=== PATIENT | male | born 1975 | race Caucasian/White ===

== ENCOUNTER 2019-12-11 14:07 | Emergency (ER) | payer BC, MEDICAID, SELFPAY ==
[2019-12-11 14:20] VITALS: BP 114/79; PULSE 116; RESP 20; TEMP 37.2; O2SAT 99
--- NOTE | 2019-12-11 14:44 | ED.GENADULT ---
HPI - General Adult General Chief complaint: Dental/Oral Stated complaint: tooth ache Source: patient Mode of arrival: ambulatory Limitations: no limitations History of Present Illness HPI narrative: 44-year-old male with type 2 diabetes complains of 3 days of pain in his left upper and lower molars associated with facial swelling. Pain is sharp rated 15/10. It was so severe yesterday he had several episodes of nausea and vomiting. None today. He denies fevers /chills. Related Data Allergies Allergy/AdvReac Type Severity Reaction Status Date / Time Penicillins Allergy Itching Verified 12/11/19 14:41 Review of Systems Constitutional: Constitutional: Reports no additional constitutional complaints ENT: Reports system reviewed and no additional complaints, except as documented Comments: Left ear pain today. [facility] Past Medical History Medical History (Updated 12/11/19 @ 14:53 by Lai Ortega MD) Diabetes mellitus type 2 in obese Social History Social History (Updated 12/11/19 @ 14:54 by Lai Ortega MD) Smoking status: Current every day smoker Exam Narrative: Exam Narrative: Vitals are stable pulse of 116 he appears to be in pain, holding the left side of his face. HENMT: Ears: TM's normal bilaterally ( left tympanic membrane is normal) and EAC's normal ( ) Other: fully opens his mouth. Several left mandibular molars are decayed down to the gums; adjacent teeth are tender when percussed. Several decayed molar some left maxillary painful when percussed. He is tender in the left axilla and left mandibular area with very minor swelling. There is no erythema or induration. No cervical lymphadenopathy. Course Vital Signs Vital signs: Vital Signs Temperature 37.2 C 12/11/19 14:20 Pulse Rate 116 H 12/11/19 14:20 Respiratory Rate 12/11/19 14:20 Blood Pressure 114/79 12/11/19 14:20 Pulse Oximetry 99 12/11/19 14:20 Temperature 37.2 C 12/11/19 14:20 Pulse Rate 116 H 12/11/19 14:20 Respiratory Rate 12/11/19 14:20 Blood Pressure 114/79 12/11/19 14:20 Pulse Oximetry 99 12/11/19 14:20 Medical Decision Making MDM Narrative Medical decision making narrative: Diabetic with extensive tooth decay and signs and symptoms consistent with dental abscess Vital Signs Vital Signs: Vital Signs Temperature 37.2 C 12/11/19 14:20 Pulse Rate 116 H 12/11/19 14:20 Respiratory Rate 12/11/19 14:20 Blood Pressure 114/79 12/11/19 14:20 Pulse Oximetry 99 12/11/19 14:20 Temperature 37.2 C 12/11/19 14:20 Pulse Rate 116 H 12/11/19 14:20 Respiratory Rate 12/11/19 14:20 Blood Pressure 114/79 12/11/19 14:20 Pulse Oximetry 99 12/11/19 14:20 Discharge Plan Discharge Clinical Impression: Dental abscess Patient Disposition: Home, Self-Care Condition: Stable Instructions: Antibiotic Form, Dental Abscess (ED) Additional Instructions: Make appt to see your mother's PCP and dentist. Prescriptions: New clindamycin HCl 300 mg capsule 300 mg PO Q6H Qty: 28 RF: 0 hydrocodone-acetaminophen [[place]] 5-325 mg tablet 2 tablet PO Q6H PRN (Reason: pain) Qty: 14 RF: 0 Follow-up/Referrals: UNKNOWN,DOCTOR [Primary Care Provider] - Time of Disposition: 14:49
== END 2019-12-11 14:55 | disposition home or self-care (01) ==
PROVIDERS: Emergency Provider Family Medicine
DX: K04.7 Periapical abscess without sinus (principal)
CPT/HCPCS: 99281; 99283

== ENCOUNTER 2020-08-28 22:28 | Emergency (ER) | payer BC, MEDICAID, SELFPAY ==
--- NOTE | 2020-08-28 22:39 | ED.DENTAL ---
HPI - Dental/Oral General Chief complaint: Dental/Oral Stated complaint: tooth ache Source: patient, family and RN notes reviewed Mode of arrival: ambulatory Limitations: no limitations History of Present Illness Complaint: tooth pain Location: Tooth # (31) Onset (ago): hour(s) (4) Duration: constant Severity: severe Exacerbating factors: chewing Context: history of dental caries and poor dental care Treatment prior to arrival: none Related Data Allergies Allergy/AdvReac Type Severity Reaction Status Date / Time Penicillins Allergy Rash Verified 08/28/20 22:45 Review of Systems Review of Systems: All systems reviewed & are unremarkable except as noted in HPI and below Constitutional: Constitutional: Denies chills and Denies fever(s) PMFSH Past Medical History Medical History (Updated 08/28/20 @ 22:57 by Willis Gonzalez MD) Anxiety Type 2 diabetes mellitus Surgical History Surgical History (Updated 08/28/20 @ 22:57 by Willis Gonzalez MD) No pertinent past surgical history Social History Social History (Updated 08/28/20 @ 22:57 by Willis Gonzalez MD) Smoking packs per day: 0.5 Smoking cigarettes per day: 10.0 Smoking status: Current every day smoker Tobacco type: cigarettes Alcohol intake: current Alcohol use details: occasional Substance use: never Gender identity (if verbalized by the patient): Male Exam Const: General: healthy appearing, no acute distress and alert Nutritional Appearance: well nourished Orientation/consciousness: patient oriented x3 HENMT: Head: normal to inspection Ears: hearing grossly normal bilaterally and external ears normal Mouth: Yes moist mucous membranes Teeth and gingiva: caries and poor dentition Teeth image: 1. fractured tooth with surrounding erythema and edema Throat: posterior oropharynx normal Eyes: Conjunctivae: conjunctivae normal Pupils: Equal, round and reactive pupils present EOM: EOMs intact bilaterally Neck: Neck: normal visual inspection and no lymphadenopathy Resp: Effort & Inspection: normal respiratory effort Auscultation: clear to auscultation bilaterally Cardio: Rate: regular rate Rhythm: regular rhythm GI: Auscultation: normal bowel sounds Back/Spine/Pelvis: Back: no CVA tenderness and CVA tenderness Skin: General skin exam: normal color Rashes: no rashes Neuro: General: patient oriented x3, moves all extremities, no meningeal signs and no focal motor deficits Speech: normal speech Gait exam (Neuro): Normal gait present Extrem: General: normal to inspection and no clubbing, cyanosis or edema Psych: Appearance: grossly normal and well kempt Mental Status: mental status grossly normal Affect: normal affect Attitude: cooperative Thought content: Yes Normal thought content present Discharge Plan Discharge Clinical Impression: Dental caries, Toothache Patient Disposition: Home, Self-Care Condition: Stable Instructions: Antibiotic Form, Toothache (ED) Prescriptions: New tramadol 50 mg tablet 50 mg PO Q4H PRN (Reason: pain) Qty: 18 RF: 0 clindamycin HCl 300 mg capsule 300 mg PO Q8H 10 Days Qty: 30 RF: 0 Follow-up/Referrals: UNKNOWN,DOCTOR [Primary Care Provider] - Stand Alone Forms: Work/School Release IP Time of Disposition: 22:54
[2020-08-28 22:41] VITALS: BP 145/90; PULSE 105; RESP 20; TEMP 36.7; O2SAT 99
[2020-08-28] MEDS: CLINDAMYCIN HCL 150 MG CAP 300 MG PO (23:02)
[2020-08-28] MEDS: traMADol HCL (*CRX) 50 MG TABLET PO (23:02)
[2020-08-28 23:03] VITALS: BP 140/88; PULSE 110; RESP 20; TEMP 36.7; O2SAT 98
== END 2020-08-28 23:04 | disposition home or self-care (01) ==
PROVIDERS: Emergency Provider Emergency Medicine
DX: K02.9 Dental caries, unspecified (principal); K08.89 Other specified disorders of teeth and supporting structures
CPT/HCPCS: 99283; A9270

== ENCOUNTER 2020-12-22 09:18 | Outpatient (CLI) | payer BC, MEDICAID, SELFPAY ==
[2020-12-22 09:47] LABS: Hemoglobin A1C 9.3 % (<5.7)
[2020-12-22 10:03] LABS: Creatinine Urine 149.85 mg/dL (40-278)
[2020-12-22 10:05] LABS: MALB Creatinine Ratio 107.5 mg/g (0-30); Microalbumin Urine Random 161.2 mg/L
[2020-12-22 10:25] LABS: Alanine Aminotransferase 32 U/L (16-63); Albumin Level 4.1 g/dL (3.4-5.0); Alkaline Phosphatase 68 U/L (46-116); Anion Gap 11 mmol/L (8-16); Aspartate Amino Transferase 13 U/L (15-37); Blood Urea Nitrogen 19 mg/dL (7-18); Calcium 8.9 mg/dL (8.5-10.1); Carbon Dioxide 26 mmol/L (21-32); Chloride 104 mmol/L (98-108); Cholesterol 160 mg/dL (0-200); Estimated Glomerular Filt Rate > 60; Glucose 237 mg/dL (70-99); HDL Direct 39 mg/dL (40-60); LDL Cholesterol Calculated 70 mg/dL (<130); Osmolality Calculated 302 mOsm/kg (285-295); Potassium 3.8 mmol/L (3.5-5.1); Sodium 141 mmol/L (136-145); Total Protein 7.5 g/dL (6.4-8.2); Triglycerides 256 mg/dL (0-150)
== END 2020-12-22 09:19 | disposition home or self-care (01) ==
LOC: CHSLAB 09:21
PROVIDERS: PCP Family Medicine; Visit Provider Family Medicine
DX: E11.9 Type 2 diabetes mellitus without complications (principal)
CPT/HCPCS: 36415; 80053; 80061; 82043; 83036

== ENCOUNTER 2021-01-28 15:41 | Emergency (ER) | payer BC, MEDICAID, SELFPAY ==
--- NOTE | 2021-01-28 15:58 | ED.WOUNDLAC ---
HPI - Wound/Laceration General Stated Complaint: toe laceration,diabetic Source: patient Mode of arrival: ambulatory Limitations: no limitations History of Present Illness HPI narrative: patient has skin lesion looks like an abrasion and laceration that is scabbed over that occurred last night, has a history of diabetes and follows with a local clinic, presents with some skin lesion is not up-to-date with his tetanus currently there is no pain or tenderness no bleeding the area is scabbed over, with no fever or chills no drainage no warmth or tenderness. Onset (ago): hour(s) Extremity Location: Left: foot ( Left large toe) Related Data Allergies Allergy/AdvReac Type Severity Reaction Status Date / Time Penicillins Allergy Rash Verified 08/28/20 22:45 Review of Systems Review of Systems: All systems reviewed & are unremarkable except as noted in HPI and below PMFSH Past Medical History Medical History Anxiety Type 2 diabetes mellitus Surgical History Surgical History No pertinent past surgical history Social History Social History Smoking packs per day: 0.5 Smoking cigarettes per day: 10.0 Smoking status: Current every day smoker Tobacco type: cigarettes Alcohol intake: current Alcohol use details: occasional Substance use: never Gender identity (if verbalized by the patient): Male Exam Const: General: no acute distress Orientation/consciousness: patient oriented x3 HENMT: Head: normal to inspection Eyes: Conjunctivae: conjunctivae normal Pupils: Equal, round and reactive pupils present Chest: Chest palpation & inspection: normal inspection of the chest Resp: Effort & Inspection: normal respiratory effort GI: GI Palp: Yes Soft to palpation Back/Spine/Pelvis: Back: no CVA tenderness Skin: Other: Healing laceration distal end of his left large toe with no drainage there is no warmth or tenderness. Course Course Emergency Course: Patient advised to follow with his primary care physician within 1 week to make sure this is healing properly, will give the patient a dose of oral clindamycin and update patient with his tetanus vaccine Critical Care Time Critical Care Time Critical Care Time: No Discharge Plan Discharge Clinical Impression: Laceration Patient Disposition: Home, Self-Care Condition: Stable Instructions: Antibiotic Form, Acute Wounds (ED) Additional Instructions: advised to take medicine as prescribed and follow-up with primary care physician within 1 week for further evaluation treatment. Prescriptions: New clindamycin HCl 300 mg capsule 300 mg PO Q6H 10 Days Qty: 40 RF: 0 mupirocin 2 % ointment 1 applic topical TID 7 Days Qty: 15 RF: 0 No Action tramadol 50 mg tablet 50 mg PO Q4H PRN (Reason: pain) Qty: 18 RF: 0 clindamycin HCl 300 mg capsule 300 mg PO Q8H 10 Days Qty: 30 RF: 0 Follow-up/Referrals: UNKNOWN,DOCTOR [Primary Care Provider] - Time of Disposition: 16:03
[2021-01-28] MEDS: NEOMYCIN/POLYMYXIN/BACITRACIN OINTMENT PACKET 1 PACKET TOPICAL (16:00)
[2021-01-28] MEDS: TETANUS,DIPHTHERIA,AC PERTUSSIS ADULT 0.5 ML (ADACEL) IM (16:18)
[2021-01-28 16:19] VITALS: BP 137/97; PULSE 100; RESP 20; TEMP 36.5; O2SAT 100
[2021-01-28] MEDS: CLINDAMYCIN HCL 150 MG CAP 600 MG PO (16:19)
== END 2021-01-28 16:16 | disposition home or self-care (01) ==
PROVIDERS: Emergency Provider Emergency Medicine
DX: S91.112A Laceration without foreign body of left great toe without damage to nail, initial encounter (principal)
CPT/HCPCS: 90471; 90715; 99283; A9270